=== PATIENT | female | born 1945 | race African-American/Black ===

== ENCOUNTER 2019-01-26 09:10 | Outpatient (CLI) | payer MEDICARE ==
--- NOTE | 2019-01-26 11:46 | CT ---
CT ABDOMEN AND PELVIS WITH IV CONTRAST: 01/26/2019 PROVIDED CLINICAL HISTORY: Left lower quadrant pain. COMPARISON: None. FINDINGS: The visualized lung bases are free of significant opacity. The liver, spleen, pancreas, kidneys, and adrenal glands demonstrate an unremarkable CT appearance. There is no bowel dilatation, inflammatory fat stranding, free fluid, or lymph node enlargement appar ent. Numerous colonic diverticula are seen, preferentially involving the sigmoid colon. There is no CT evidence for diverticulitis. Vascular calcification is noted. There is a potentially moderate stenosis involving the celiac origi n. The osseous structures demonstrate no concerning lytic or blastic lesions. The uterus is not visualized and is presumed surgically absent. IMPRESSION: Colonic diverticulosis without CT evidence for diverticulitis. POS: C
== END 2019-01-26 09:11 | disposition home or self-care (01) ==
LOC: BICCT 09:10
PROVIDERS: ATTEND Physician Assistant Medical
DX: K57.92 Diverticulitis of intestine, part unspecified, without perforation or abscess without bleeding (principal); R10.32 Left lower quadrant pain; R19.4 Change in bowel habit; R15.9 Full incontinence of feces; R14.0 Abdominal distension (gaseous); R14.2 Eructation; K57.30 Diverticulosis of large intestine without perforation or abscess without bleeding
CPT/HCPCS: 74177; 82565

== ENCOUNTER 2022-01-16 09:34 | Outpatient (CLI) | payer MEDICARE | END 2022-01-16 09:35 | disposition home or self-care (01) | LOC: SCSRAD 09:34 | PROVIDERS: ATTEND Family Medicine | DX: M25.552 Pain in left hip (principal); M54.50 Low back pain, unspecified | CPT/HCPCS: 72100 ==

== ENCOUNTER 2022-04-28 16:26 | Emergency (ER) | payer MEDICARE ==
[2022-04-28] MEDS ORDERED: Ketorolac Tromethamine 30 MG/ML VIAL ONE (16:57)
[2022-04-28] MEDS ORDERED: Morphine 4 MG/ML VIAL ONE (16:57)
[2022-04-28 17:15] LABS: #Lymphocytes 0.6 thou/uL (1.20-3.40); #Monocytes 0.2 thou/uL (0.11-0.59); #Neutrophils 3.1 thou/uL (1.40-6.50); %Basophils 0.5 % (0.0-1.0); %Eosinophils 0.1 % (0.0-10.0); %Lymphocytes 15.2 % (21.0-51.0); %Monocytes 4.4 % (0.0-10.0); %Neutrophils 79.8 % (42.0-75.0); Hemoglobin 13.3 g/dL (12.0-16.0); Mean Corpuscular HGB CONC 32.6 g/dL (32.0-36.0); Mean Platelet Volume 7.1 fL (7.4-10.4); Platelet Count 181 thou/uL (130-400); RBC Distribution Width 12.3 % (11.5-14.5); White Blood Cell (WBC) Count 3.9 thou/uL (4.8-10.8)
[2022-04-28 17:30] LABS: ALT (SGPT) 33 U/L (8-55); AST (SGOT) 41 U/L (5-34); Albumin 3.9 g/dL (3.4-4.8); Alkaline Phosphatase 102 U/L (40-110); Anion Gap 13 mmol/L (10-20); BUN (Urea Nitrogen) 9 mg/dL (9.8-20.1); Bilirubin, Total 0.4 mg/dL (0.2-1.2); Calc. Creatinine Clearance 0 mL/min (70-130); Calcium 9.3 mg/dL (7.8-10.44); Carbon Dioxide 21 mmol/L (23-31); Chloride 106 mmol/L (98-107); Estimated GFR 73; Globulin 2.9 g/dL (2.4-3.5); Glucose 111 mg/dL (83-110); Potassium 3.7 mmol/L (3.5-5.1); Protein, Total 6.8 g/dL (5.8-8.1); Sodium 136 mmol/L (136-145)
[2022-04-28] MEDS ORDERED: Dexamethasone 10 MG/ML VIAL ONE (17:51)
[2022-04-28 21:18] LABS: SARS-CoV-2 NAA Rapid Test Not Detected (NotDetected)
== END 2022-04-28 21:32 | disposition home or self-care (01) ==
LOC: ERS 16:26
DX: M50.30 Other cervical disc degeneration, unspecified cervical region (principal); Z20.822 Contact with and (suspected) exposure to COVID-19
CPT/HCPCS: 0240U; 72125; 80053; 85025; 85652; 86140; 96374; 96375; 99284; 36415; J1100; J1885; J2270

== ENCOUNTER 2023-06-18 12:17 | Outpatient (CLI) | payer MEDICARE | END 2023-06-18 12:18 | disposition home or self-care (01) | LOC: RAD 12:17 | PROVIDERS: ATTEND Internal Medicine Gastroenterology | DX: K57.30 Diverticulosis of large intestine without perforation or abscess without bleeding (principal) | CPT/HCPCS: 74280 ==